=== PATIENT | female | born 1955 | race Caucasian/White ===

== ENCOUNTER 2017-07-10 12:47 | Day surgery (SDC) | payer OTHER ==
[~2017-07-10] VITALS: Ht 167.6 cm; Wt 55.3 kg
--- NOTE | ~2017-07-10 | EGD ---
EGD REPORT [facility] [address] [address] NAME: NAOMI HENSON : 57 STATUS : REG [facility]#: [id number] AGE: 62 ADM/REG DATE : 07/10/17 MR#: [id number] REPORT SERV DATE: 07/10/17 DICTATED BY: BALTAZAR HOLLEY DATE: 07/10/17 REPORT STATUS : Draft [facility]ANS[facility]IB[facility] BY: [facility] DATE: 07/10/17 [facility] Patient Name: Naomi Blackwood Date of : 1955 Attending MD: BALTAZAR HOLLEY, Procedure Date No Time: 07/10/2017 Procedure: ERCP Indications: Stent removal Referring MD: Gabriel Glover Medicines: General Anesthesia Complications: No immediate complications. Estimated blood loss: None Procedure: Pre-Anesthesia Assessment: - ASA Grade Assessment: II - A patient with mild systemic disease. After obtaining informed consent, the scope was passed under direct vision. Throughout the procedure, the patient's blood pressure, pulse, and oxygen saturations were monitored continuously. The Endoscope was introduced through the mouth, and advanced to the duodenum and used to inject contrast into the bile duct. The ERCP was accomplished without difficulty. The patient tolerated the procedure well. Findings: One stent originating in the biliary tree was emerging from the major papilla. One stent was removed from the biliary tree using a rat-toothed forceps and snare. The bile duct was deeply cannulated with the short-nosed traction sphincterotome. Contrast was injected. I personally interpreted the bile duct images. Ductal flow of contrast was adequate. The intra-hepatic and extra-hepatic biliary duct system was normal. The biliary tree was swept with a 9 mm balloon starting at the upper third of the main bile duct. Sludge was swept from the duct. Impression: - One stent from the biliary tree was seen in the major papilla. - One stent was removed from the biliary tree. - The cholangiogram was normal. Recommendation: - Return to previous diet. - Continue present medications. - Return to referring physician. Procedure Code(s): --- Professional --- 07212, Endoscopic retrograde cholangiopancreatography (ERCP); with removal of foreign body(s) or stent(s) from EGD REPORT [address] [address] NAME: NAOMI HENSON : [birth year] STATUS : REG [facility]#: [id number] AGE: 62 ADM/REG DATE : 07/10/17 MR#: [id number] REPORT SERV DATE: 07/10/17 DICTATED BY: BALTAZAR HOLLEY DATE: 07/10/17 REPORT STATUS : Draft TRANSCRIBED BY: [facility] DATE: 07/10/17 biliary/pancreatic duct(s) 48986, Endoscopic retrograde cholangiopancreatography (ERCP); with removal of calculi/debris from biliary/pancreatic duct(s) Diagnosis Code(s): --- Professional --- Z96.89, Presence of other specified functional implants Z46.59, Encounter for fitting and adjustment of other gastrointestinal appliance and device CPT copyright 2013 [employer]. All rights reserved. The codes documented in this report are preliminary and upon slag wheeler review may be revised to meet current compliance requirements. BALTAZAR HOLLEY, 07/10/2017 2:36 PM Number of Addenda: 0 Note Initiated On: 07/10/2017 2:02 PM Scope Withdrawal Time 0 hours 0 minutes 0 seconds [id number] [id number]
[~2017-07-10 12:47] MED LIST: MAGNESIUM PO; MELATONIN5 M1 PO; PCET PO; PR12.5 PO; VINEGAR PO; VITAMIN B-625 MG PO
[2017-07-10 13:17] LABS: BUN (BLOOD UREA NITROGEN) 9 MG/DL (6-23); CALCIUM, SERUM 9.2 MG/DL (8.5-10.4); CHLORIDE, SERUM 107 MMOL/L (96-112); CO2 (CARBON DIOXIDE) 28 MMOL/L (24-34); CREATININE 0.58 MG/DL (0.55-1.02); GFR AFRICAN AMERICAN 115 ML/MIN (>=60); GFR NON AFRICAN AMERICAN 99 ML/MIN (>=60); GLUCOSE, SERUM 86 MG/DL (60-99); POTASSIUM, SERUM 3.8 MMOL/L (3.5-5.3); SODIUM, SERUM 141 MMOL/L (135-148)
== END 2017-07-10 18:02 | disposition home or self-care (01) ==
LOC: DMU 12:47
PROVIDERS: Internal Medicine Gastroenterology
PROC: 0FC98ZZ Extirpation of Matter from Common Bile Duct, Via Natural or Artificial Opening Endoscopic (ICD-10-PCS; 2017-07-10)
PROC: 0FPB8DZ Removal of Intraluminal Device from Hepatobiliary Duct, Via Natural or Artificial Opening Endoscopic (ICD-10-PCS; principal; 2017-07-10 14:00)
DX: Z46.59 Encounter for fitting and adjustment of other gastrointestinal appliance and device (principal); K76.89 Other specified diseases of liver; K82.8 Other specified diseases of gallbladder; Z90.89 Acquired absence of other organs; Z98.51 Tubal ligation status; Z98.890 Other specified postprocedural states; Z88.5 Allergy status to narcotic agent; Z79.899 Other long term (current) drug therapy; Z96.89 Presence of other specified functional implants
CPT/HCPCS: 74330; 80048; A9270-GY; C1769; J0330; J2250; J2405; J3010; Q9967